=== PATIENT | female | born 1995 | race Two or more races ===

== ENCOUNTER 2019-04-19 11:23 | Emergency (ER) | payer OTHER ==
[~2019-04-19] VITALS: Ht 160 cm; Wt 64.0 kg
[2019-04-19] MEDS ORDERED: IBUPROFEN 600MG TABLET PO STA (11:54)
[2019-04-19 12:35] LABS: BASOPHILS % 0.4 % (0.0-2.0); EOSINOPHILS % 0.8 % (0.0-5.0); HEMATOCRIT. 35.8 % (36.0-48.0); HEMOGLOBIN. 12.4 g/dL (12.0-16.0); LYMPHOCYTES % 28.5 % (20.0-50.0); MEAN CORPUSCULAR HEMOGLOBIN 26.9 pg (28.0-32.0); MEAN CORPUSCULAR VOLUME 77.8 fL (81.0-99.0); MEAN PLATELET VOLUME 8.5 fl (7.4-10.4); MONOCYTES % 7.7 % (2.0-8.0); NEUTROPHILS % 62.6 % (40.0-76.0); PLATELET 280 x1000/uL (130-400); RED CELL DISTRIBUTION WIDTH 18.9 % (11.6-14.6)
[2019-04-19 12:41] LABS: CHLORIDE 106 mEq/L (98-107)
[2019-04-19 13:00] LABS: CLARITY URINE TURBID (CLEAR); COLOR URINE YELLOW (YELLOW); KETONES URINE NEGATIVE (NEGATIVE); LEUKOCYTE ESTERASE URINE NEGATIVE (NEGATIVE); NITRITE URINE NEGATIVE (NEGATIVE); OCCULT BLOOD URINE NEGATIVE (NEGATIVE); PROTEIN URINE NEGATIVE (NEGATIVE); SPECIFIC GRAVITY URINE 1.016 (1.005-1.030)
[2019-04-19 15:14] VITALS: BP 114/65
== END 2019-04-19 15:15 | disposition home or self-care (01) ==
LOC: ER 11:23
DX: R10.2 Pelvic and perineal pain (principal); N83.202 Unspecified ovarian cyst, left side
CPT/HCPCS: 36415; 76830; 76856; 81003; 81025; 99284

== ENCOUNTER 2019-07-08 20:50 | Emergency (ER) | payer SELFPAY ==
[~2019-07-08] VITALS: Ht 160 cm; Wt 63.0 kg
[2019-07-08 20:57] VITALS: BP 135/72
== END 2019-07-08 22:30 | disposition left against medical advice (07) ==
LOC: ER 20:50
DX: O26.891 Other specified pregnancy related conditions, first trimester (principal); R10.32 Left lower quadrant pain; M54.9 Dorsalgia, unspecified; Z3A.01 Less than 8 weeks gestation of pregnancy; Z53.21 Procedure and treatment not carried out due to patient leaving prior to being seen by health care provider

== ENCOUNTER 2023-09-14 23:18 | Emergency (ER) | payer SELFPAY ==
[2023-09-14 23:30] VITALS: PULSE 109
== END 2023-09-15 03:00 | disposition left against medical advice (07) ==
LOC: ER 23:18
DX: S61.219A Laceration without foreign body of unspecified finger without damage to nail, initial encounter (principal); Z53.21 Procedure and treatment not carried out due to patient leaving prior to being seen by health care provider; X58.XXXA Exposure to other specified factors, initial encounter; Y93.89 Activity, other specified; Y92.89 Other specified places as the place of occurrence of the external cause; Y99.8 Other external cause status

== ENCOUNTER 2024-02-09 14:06 | Emergency (ER) | payer MEDICAID, OTHER ==
[~2024-02-09] VITALS: Ht 160 cm; Wt 68.0 kg
[2024-02-09 14:18] VITALS: O2SAT 100
[2024-02-09] MEDS: ONDANSETRON HCL 4MG/2ML INJ IV STA (17:01)
[2024-02-09] MEDS: SODIUM CHLORIDE 0.9% 1,000 ML IV ONE (17:02)
[2024-02-09 17:05] VITALS: BP 135/82; PULSE 74; RESP 16; TEMP 98.3
[2024-02-09 17:06] LABS: BASOPHILS % 0.2 % (0.0-2.0); EOSINOPHILS % 0.5 % (0.0-5.0); HEMOGLOBIN. 13.5 g/dL (12.0-16.0); LYMPHOCYTES % 35.5 % (20.0-50.0); MEAN CORPUSCULAR HEMOGLOBIN 30.2 pg (28.0-32.0); MEAN CORPUSCULAR HGB CONC 33.8 g/dL (31.0-37.0); MEAN CORPUSCULAR VOLUME 89.3 fL (81.0-99.0); MEAN PLATELET VOLUME 7.8 fl (7.4-10.4); MONOCYTES % 9.7 % (2.0-8.0); NEUTROPHILS % 54.1 % (40.0-76.0); PLATELET 326 x1000/uL (130-400); RED BLOOD CELL COUNT 4.47 mill/uL (4.2-5.4); RED CELL DISTRIBUTION WIDTH 16.2 % (11.6-14.6); WHITE BLOOD COUNT 8.1 x1000/uL (4.5-11.0)
[2024-02-09 17:09] LABS: CARBON DIOXIDE 25 mEq/L (21-32); CHLORIDE 104 mEq/L (98-107); POTASSIUM 3.6 mEq/L (3.5-5.1); SODIUM 136 mEq/L (136-145)
[2024-02-09 17:10] LABS: CALCIUM 10.2 mg/dL (8.7-10.4)
[2024-02-09 17:14] LABS: CLARITY URINE CLOUDY (CLEAR); COLOR URINE YELLOW (YELLOW); GLUCOSE URINE NEGATIVE (NEGATIVE); KETONES URINE NEGATIVE (NEGATIVE); LEUKOCYTE ESTERASE URINE NEGATIVE (NEGATIVE); NITRITE URINE NEGATIVE (NEGATIVE); OCCULT BLOOD URINE NEGATIVE (NEGATIVE); PH URINE 5.5 (4.5-8.0); PROTEIN URINE NEGATIVE (NEGATIVE); SPECIFIC GRAVITY URINE 1.025 (1.005-1.030); UROBILINOGEN URINE 0.2 E.U./dL (0.2-1.0)
[2024-02-09 17:14] LABS: CREATININE 0.7 mg/dL (0.6-1.0)
[2024-02-09 17:15] LABS: GLUCOSE 90 mg/dL (70-105); UREA NITROGEN BLOOD 8 mg/dL (9-23)
[2024-02-09 17:16] LABS: ALANINE AMINOTRANSFERASE 16 IU/L (10-49); ASPARTATE AMINOTRANSFERASE 16 IU/L (<34)
[2024-02-09 17:17] LABS: BILIRUBIN DIRECT 0.5 mg/dL (<=3.0); BILIRUBIN TOTAL 1.4 mg/dL (0.1-1.0); PROTEIN TOTAL 7.2 g/dL (6.0-8.3)
[2024-02-09 17:19] LABS: HCG SCREEN NEGATIVE
[2024-02-09 17:34] LABS: BACTERIA URINE TRACE; RBC URINE NONE SEEN /hpf (0-2); SQUAMOUS EPITHELIAL CELL URINE FEW /lpf (RARE/1+); WBC URINE 0-2 /hpf (0-2)
[2024-02-09] MEDS ORDERED: ONDA4TAB50 MT (23:36)
[2024-02-09] MEDS ORDERED: PANT40SU MT (23:36)
[2024-02-09] MEDS ORDERED: TOPUD MT (23:36)
== END 2024-02-09 23:39 | disposition home or self-care (01) ==
LOC: ER 14:06
DX: R53.1 Weakness (principal); R11.0 Nausea; F12.10 Cannabis abuse, uncomplicated
CPT/HCPCS: 99283; 96374; 80076; 80048; 81003; 84703; 83690; 85025; 36415; J2405; J7030

== ENCOUNTER 2024-10-30 09:59 | Emergency (ER) | payer MEDICAID ==
[~2024-10-30] VITALS: Ht 160 cm; Wt 86.0 kg
[~2024-10-30 09:59] MED LIST: ONDA4TAB50 MT; PANT40SU MT; TOPUD MT
[2024-10-30 10:02] VITALS: O2SAT 98
[2024-10-30 10:09] VITALS: BP 116/75; PULSE 74; RESP 16; TEMP 37.1; O2SAT 96
[2024-10-30 10:36] LABS: CLARITY URINE CLOUDY (CLEAR); COLOR URINE YELLOW (YELLOW); GLUCOSE URINE NEGATIVE (NEGATIVE); KETONES URINE NEGATIVE (NEGATIVE); LEUKOCYTE ESTERASE URINE NEGATIVE (NEGATIVE); NITRITE URINE NEGATIVE (NEGATIVE); OCCULT BLOOD URINE NEGATIVE (NEGATIVE); PROTEIN URINE TRACE (NEGATIVE); SPECIFIC GRAVITY URINE 1.025 (1.005-1.030)
[2024-10-30 10:37] LABS: BASOPHILS % 0.4 % (0.0-2.0); EOSINOPHILS % 1.3 % (0.0-5.0); HEMATOCRIT. 38.1 % (36.0-48.0); HEMOGLOBIN. 13.5 g/dL (12.0-16.0); LYMPHOCYTES % 34.6 % (20.0-50.0); MEAN CORPUSCULAR HEMOGLOBIN 31.2 pg (28.0-32.0); MEAN CORPUSCULAR HGB CONC 35.3 g/dL (31.0-37.0); MEAN CORPUSCULAR VOLUME 88.4 fL (81.0-99.0); MEAN PLATELET VOLUME 7.8 fl (7.4-10.4); MONOCYTES % 8.1 % (2.0-8.0); NEUTROPHILS % 55.6 % (40.0-76.0); PLATELET 359 x1000/uL (130-400); RED BLOOD CELL COUNT 4.31 mill/uL (4.2-5.4); RED CELL DISTRIBUTION WIDTH 14.6 % (11.6-14.6); WHITE BLOOD COUNT 5.6 x1000/uL (4.5-11.0)
[2024-10-30 10:44] LABS: CHLORIDE 105 mEq/L (98-107); SODIUM 139 mEq/L (136-145)
[2024-10-30 10:45] LABS: CALCIUM 9.5 mg/dL (8.7-10.4); CARBON DIOXIDE 26 mEq/L (21-32)
[2024-10-30 10:50] LABS: CREATININE 0.6 mg/dL (0.6-1.0); GLUCOSE 111 mg/dL (70-105); UREA NITROGEN BLOOD 7 mg/dL (9-23)
[2024-10-30 10:56] LABS: HCG SCREEN NEGATIVE
[2024-10-30 11:00] LABS: MUCUS URINE 2+ /lpf (< = 2+); SQUAMOUS EPITHELIAL CELL URINE 2+ /lpf (RARE/1+)
[2024-10-30 11:01] VITALS: TEMP 98.8
[2024-10-30 11:01] LABS: RBC URINE 0-2 /hpf (0-2); WBC URINE 0-2 /hpf (0-2)
[2024-10-30] MEDS: ACETAMINOPHEN 325MG TABLET PO ONE (11:01)
[2024-10-30 11:02] LABS: BACTERIA URINE TRACE
[2024-10-30 11:06] LABS: ALANINE AMINOTRANSFERASE 29 IU/L (10-49); ALBUMIN 4.3 g/dL (3.2-4.8); ASPARTATE AMINOTRANSFERASE 24 IU/L (<34); BILIRUBIN DIRECT 0.6 mg/dL (<=3.0); BILIRUBIN TOTAL 1.9 mg/dL (0.1-1.0); PROTEIN TOTAL 7.1 g/dL (6.0-8.3)
[2024-10-30] MEDS ORDERED: AMOX1TAB16 MT (11:20)
== END 2024-10-30 11:44 | disposition home or self-care (01) ==
LOC: ER 09:59
DX: K52.9 Noninfective gastroenteritis and colitis, unspecified (principal); E80.7 Disorder of bilirubin metabolism, unspecified; F12.90 Cannabis use, unspecified, uncomplicated; Z79.899 Other long term (current) drug therapy; Z87.19 Personal history of other diseases of the digestive system
CPT/HCPCS: 36415; 74176; 80048; 80076; 81003; 81025; 84703; 85025; 99284

== ENCOUNTER 2025-07-07 21:24 | Emergency (ER) | payer MEDICAID ==
[~2025-07-07] VITALS: Ht 162.6 cm; Wt 75.0 kg
[~2025-07-07 21:24] MED LIST changes: +AMOX1TAB16 MT
[2025-07-07 21:27] VITALS: O2SAT 98
[2025-07-07 21:48] VITALS: BP 120/81; PULSE 94; RESP 18; TEMP 36.8; O2SAT 100
[2025-07-07] MEDS ORDERED: ONDANSETRON HCL 4MG/2ML INJ IV ONE (22:30)
[2025-07-07] MEDS ORDERED: SODIUM CHLORIDE 0.9% 1,000 ML IV ONE (22:30)
[2025-07-07] MEDS ORDERED: MORPHINE SULFATE 4 MG/ML INJ (FOR IV/IM USE) IV ONE (22:30)
[2025-07-08 00:33] LABS: BASOPHILS % 0.2 % (0.0-2.0); EOSINOPHILS % 0.4 % (0.0-5.0); HEMATOCRIT. 38.1 % (36.0-48.0); HEMOGLOBIN. 12.8 g/dL (12.0-16.0); LYMPHOCYTES % 26.7 % (20.0-50.0); MEAN PLATELET VOLUME 8.6 fl (7.4-10.4); MONOCYTES % 6.7 % (2.0-8.0); NEUTROPHILS % 66.0 % (40.0-76.0); PLATELET 374 x1000/uL (130-400); RED BLOOD CELL COUNT 4.26 mill/uL (4.2-5.4); RED CELL DISTRIBUTION WIDTH 14.2 % (11.6-14.6)
[2025-07-08 01:00] LABS: CREATININE 0.7 mg/dL (0.6-1.0); UREA NITROGEN BLOOD 11 mg/dL (9-23)
[2025-07-08 01:01] LABS: ASPARTATE AMINOTRANSFERASE 16 IU/L (<34)
[2025-07-08 01:02] LABS: BILIRUBIN DIRECT 0.5 mg/dL (<=3.0); BILIRUBIN TOTAL 1.6 mg/dL (0.1-1.0); PROTEIN TOTAL 7.2 g/dL (6.0-8.3)
== END 2025-07-08 02:28 | disposition left against medical advice (07) ==
LOC: ER 21:39
DX: R10.11 Right upper quadrant pain (principal); F12.90 Cannabis use, unspecified, uncomplicated; Z79.899 Other long term (current) drug therapy
CPT/HCPCS: 99284; 76705; 80076; 80048; 83690; 85025; 36415; J7030